=== PATIENT | female | born 1995 | race Caucasian/White ===

== ENCOUNTER 2019-01-11 16:42 | Emergency (ER) | payer SELFPAY ==
[~2019-01-11] VITALS: Ht 167.6 cm; Wt 75.8 kg
[~2019-01-11 16:42] MED LIST: AMOX50SU PO; Amoxicillin500 MG PO; CODACE30 PO; CODACEE120; DIPATR PO; HYDR1TAB94 PO; IBU; LIDO2L TOP; PROC5 PO; RXAMOX250S PO; RXCODACET PO; RXNEOPOLHC AS; Veetids 500500 MG PO
[2019-01-11] MEDS ORDERED: PENVK500 PO (17:21)
== END 2019-01-11 17:25 | disposition home or self-care (01) ==
LOC: ER 16:42
DX: J02.0 Streptococcal pharyngitis (principal); F17.200 Nicotine dependence, unspecified, uncomplicated
CPT/HCPCS: 87430; 99282

== ENCOUNTER 2019-01-15 11:22 | Emergency (ER) | payer SELFPAY ==
[~2019-01-15] VITALS: Ht 167.6 cm; Wt 75.8 kg
[~2019-01-15 11:22] MED LIST changes: +PENVK500 PO
[2019-01-15] MEDS ORDERED: Norco 5-325 Ta1 EACH PO (12:33)
== END 2019-01-15 12:49 | disposition home or self-care (01) ==
LOC: ER 11:22
DX: J02.0 Streptococcal pharyngitis (principal)
CPT/HCPCS: 99282; J1100

== ENCOUNTER 2019-01-17 12:28 | Emergency (ER) | payer SELFPAY ==
[~2019-01-17] VITALS: Ht 167.6 cm; Wt 75.8 kg
[~2019-01-17 12:28] MED LIST changes: +Norco 5-325 Ta1 EACH PO
[2019-01-17 13:25] LABS: Chloride (POC) 103 mmol/L (98-108); Creatinine (POC) 0.5 mg/dL (0.6-1.0); Glucose (ISTAT POC) 90 mg/dL (70-99); Hemoglobin (POC) 14.6 g/dL (12.0-16.0); Potassium (POC) 3.7 mmol/L (3.5-5.5); Sodium (POC) 138 mmol/L (135-148); Total CO2 (POC) 24 mmol/L (21-32)
[2019-01-17] MEDS ORDERED: Augmentin 875-1 EACH PO (16:31)
== END 2019-01-17 17:06 | disposition home or self-care (01) ==
LOC: ER 12:28
PROVIDERS: Physician Assistant
DX: J02.9 Acute pharyngitis, unspecified (principal); F17.200 Nicotine dependence, unspecified, uncomplicated
CPT/HCPCS: 36415; 70491; 80047; 84703; 85014; 96365-59; 96366; 99284-25; J0295; J1100; Q9967

== ENCOUNTER 2019-07-27 18:17 | Emergency (ER) | payer SELFPAY ==
[~2019-07-27] VITALS: Ht 167.6 cm; Wt 74.8 kg
[~2019-07-27 18:17] MED LIST changes: +Augmentin 875-1 EACH PO
[2019-07-27] MEDS ORDERED: Augmentin 875-1 EACH PO (18:55)
== END 2019-07-27 19:05 | disposition home or self-care (01) ==
LOC: ER 18:17
DX: J02.9 Acute pharyngitis, unspecified (principal); R59.0 Localized enlarged lymph nodes; F17.200 Nicotine dependence, unspecified, uncomplicated
CPT/HCPCS: 87081; 87430; 99283; J1100

== ENCOUNTER 2019-07-30 08:30 | Emergency (ER) | payer SELFPAY ==
[~2019-07-30] VITALS: Ht 167.6 cm; Wt 74.8 kg
[2019-07-30 10:35] LABS: BASOPHILS ABSOLUTE AUTO 0.03 K/mm3 (0.00-0.23); BASOPHILS PERCENT AUTO 0 % (0-2); EOSINOPHILS ABSOLUTE AUTO 0.12 K/mm3 (0.00-0.68); EOSINOPHILS PERCENT AUTO 1 % (0-6); Hematocrit 37.7 % (33.0-51.0); Hemoglobin 12.1 g/dL (11.5-16.0); IMMATURE GRAN ABSOLUTE AUTO 0.06 K/mm3 (0.00-0.10); IMMATURE GRAN PERCENT AUTO 1 % (0-1); LYMPHOCYTES ABSOLUTE AUTO 2.21 K/mm3 (0.84-5.20); LYMPHOCYTES PERCENT AUTO 18 % (21-46); MONOCYTES ABSOLUTE AUTO 1.07 K/mm3 (0.16-1.47); MONOCYTES PERCENT AUTO 9 % (4-13); Mean Corpuscular HGB 29.5 pg (26.0-34.0); Mean Corpuscular HGB Conc 32.1 g/dL (31.5-36.5); Mean Corpuscular Volume 92 fL (80-100); Mean Platelet Volume 10.1 fL (9.1-12.4); NEUTROPHILS ABSOLUTE AUTO 9.08 K/mm3 (1.96-9.15); NEUTROPHILS PERCENT AUTO 72 % (41-73); Platelet Count 313 K/mm3 (150-400); RDW Coefficient Variation 12.9 % (11.7-14.2); RDW Standard Deviation 43.5 fL (35.1-46.3); White Blood Cell Count 12.57 K/mm3 (4.00-11.30)
[2019-07-30 10:53] LABS: Alanine Aminotransfer (ALT/SGP 58 U/L (12-78); Albumin, Blood 3.6 g/dL (3.4-5.0); Albumin/Globulin Ratio 0.8 (0.8-1.8); Alk Phos 59 U/L (50-136); Anion Gap 4 mmol/L (6-16); Aspartate Aminotrans (AST/SGOT 35 U/L (12-37); Bilirubin, Total 0.3 mg/dL (0.1-1.0); Blood Urea Nitrogen 10 mg/dL (8-24); Bun/Creatinine Ratio 18.3 (12.0-20.0); CO2, Blood 27 mmol/L (21-32); Calcium, Blood 8.7 mg/dL (8.5-10.1); Chloride, Blood 108 mmol/L (98-108); Creatinine, Blood 0.55 mg/dL (0.40-1.00); Globulin, Blood 4.8 g/dL (2.2-4.0); Glomerular Filtration Rate >60 (60-); Glucose, Blood 100 mg/dL (70-99); Potassium, Blood 3.5 mmol/L (3.5-5.5); Sodium, Blood 139 mmol/L (136-145); Total Protein, Blood 8.4 g/dL (6.4-8.2)
[2019-07-30] MEDS ORDERED: Augmentin 875-1 EACH PO (11:35)
[2019-07-30] MEDS ORDERED: Tylenol #3 El12.5 ML PO (11:47)
== END 2019-07-30 11:46 | disposition home or self-care (01) ==
LOC: ER 08:30
PROVIDERS: Physician Assistant
DX: J02.9 Acute pharyngitis, unspecified (principal); F17.200 Nicotine dependence, unspecified, uncomplicated
CPT/HCPCS: 36415; 80053; 85025; 96374; 99283-25; J3010

== ENCOUNTER 2020-05-18 22:07 | Emergency (ER) | payer SELFPAY ==
[~2020-05-18] VITALS: Ht 167.6 cm; Wt 80.7 kg
[~2020-05-18 22:07] MED LIST changes: +Tylenol #3 El12.5 ML PO
== END 2020-05-19 00:39 | disposition home or self-care (01) ==
LOC: ER 22:07
DX: J02.8 Acute pharyngitis due to other specified organisms (principal)
CPT/HCPCS: 87081; 87430; 99282

== ENCOUNTER 2021-03-14 21:30 | Emergency (ER) | payer BC ==
[~2021-03-14] VITALS: Ht 165.1 cm; Wt 86.2 kg
== END 2021-03-15 00:52 | disposition home or self-care (01) ==
LOC: ER 21:30
DX: R10.9 Unspecified abdominal pain (principal); F17.200 Nicotine dependence, unspecified, uncomplicated
CPT/HCPCS: 36415; 74176; 80053; 81001; 81025; 85025; 87077; 87086; 87186; 96365; 96375; 99284-25; A9270; J0696; J1885; J2405

== ENCOUNTER → 2024-11-30 | Outpatient (CLI) | payer OTHER ==
[2024-11-30 14:16] LABS: Candida Group, PCR NOT DETECTED (NOT DETECT); Candida glabrata-krusei, PCR NOT DETECTED (NOT DETECT)
[2024-11-30 14:46] LABS: Chlamydia Trachomatis Vaginal NOT DETECTED (NOT DETECT); Neisseria Gonorrhoea Vaginal NOT DETECTED (NOT DETECT)
[2024-11-30 14:49] LABS: Bacterial Vaginosis PCR Positive (NEGATIVE)
[2024-12-01 15:31] LABS: HEPATITIS B SURFACE ANTIGEN Negative (Negative)
[2024-12-01 17:10] LABS: HIV 1,2 COMBO ANTIGEN/ANTIBODY Negative (Negative)
[2024-12-01 17:42] LABS: HEPATITIS C AB CIA INTERP Negative (Negative); HEPATITIS C ANTIBODY CIA INDEX 0.08 IV
== END ==
LOC: LAB 09:44 → LAB SHORT 09:44
PROVIDERS: Registered Nurse Community Health
DX: Z11.3 Encounter for screening for infections with a predominantly sexual mode of transmission (principal); Z20.2 Contact with and (suspected) exposure to infections with a predominantly sexual mode of transmission
CPT/HCPCS: 86592; 86803; 87340; 87389; 87481; 87491; 87591; 87661; 87801

== ENCOUNTER → 2025-01-15 | Outpatient (CLI) | payer OTHER | LOC: LAB SHORT 15:08 → LAB 15:08 | DX: N39.0 Urinary tract infection, site not specified (principal); R10.2 Pelvic and perineal pain; R30.0 Dysuria | CPT/HCPCS: 87086 ==

== ENCOUNTER → 2025-03-19 | Outpatient (CLI) | payer OTHER ==
[2025-03-19 18:38] LABS: Candida Group, PCR NOT DETECTED (NOT DETECT); Candida glabrata-krusei, PCR NOT DETECTED (NOT DETECT)
[2025-03-19 18:45] LABS: Bacterial Vaginosis PCR Positive (NEGATIVE)
== END ==
LOC: LAB SHORT 15:30 → LAB 15:30
PROVIDERS: General Practice
DX: Z11.3 Encounter for screening for infections with a predominantly sexual mode of transmission (principal); N89.8 Other specified noninflammatory disorders of vagina
CPT/HCPCS: 81515

== ENCOUNTER → 2025-10-20 | Outpatient (CLI) | payer OTHER | LOC: LAB 15:44 → LAB SHORT 15:44 | DX: R30.0 Dysuria (principal) | CPT/HCPCS: 87077; 87086; 87186 ==

== ENCOUNTER 2025-11-15 18:59 | Emergency (ER) | payer OTHER ==
[~2025-11-15] VITALS: Ht 165.1 cm; Wt 72.6 kg
[2025-11-15 19:12] VITALS: BP 167/93
== END 2025-11-15 20:06 | disposition home or self-care (01) ==
LOC: ER 18:59
DX: S90.861A Insect bite (nonvenomous), right foot, initial encounter (principal); S90.851A Superficial foreign body, right foot, initial encounter; W57.XXXA Bitten or stung by nonvenomous insect and other nonvenomous arthropods, initial encounter; F17.200 Nicotine dependence, unspecified, uncomplicated
CPT/HCPCS: 10120; 99282-25; A9270